=== PATIENT | male | born 1995 | race Caucasian/White ===

== ENCOUNTER 2017-02-22 11:55 | Emergency (ER) | payer SELFPAY ==
[~2017-02-22] VITALS: Ht 185.4 cm; Wt 108.4 kg
[~2017-02-22 11:55] MED LIST: ABILIFY10 MG; DESYREL100 MG; FOCALIN XR15 M1; SERTRALINE HCL100 MG PO
[2017-02-22] MEDS ORDERED: NEOMYCIN-POLYMY10 M1 LEFT EAR (13:01)
[2017-02-22] MEDS ORDERED: FLONASE16 G1 BOTH NARES (13:01)
[2017-02-22] MEDS ORDERED: ZYRTEC10 M3 PO (13:01)
[2017-02-22] MEDS ORDERED: GUAIFENESIN600 M1 PO (13:01)
[2017-02-22 13:10] VITALS: BP 125/70
== END 2017-02-22 13:11 | disposition home or self-care (01) ==
LOC: EME 11:55
DX: H60.92 Unspecified otitis externa, left ear (principal); J30.2 Other seasonal allergic rhinitis; R05 Cough; F17.210 Nicotine dependence, cigarettes, uncomplicated; Z71.6 Tobacco abuse counseling
CPT/HCPCS: 99281; 99282

== ENCOUNTER 2017-09-01 13:35 | Emergency (ER) | payer SELFPAY ==
[~2017-09-01] VITALS: Ht 185.4 cm; Wt 104.4 kg
[~2017-09-01 13:35] MED LIST changes: +FLONASE16 G1 BOTH NARES; +GUAIFENESIN600 M1 PO; +NEOMYCIN-POLYMY10 M1 LEFT EAR; +ZYRTEC10 M3 PO
[2017-09-01 15:27] VITALS: BP 138/90
== END 2017-09-01 15:37 | disposition home or self-care (01) ==
LOC: EME 13:35
DX: J36 Peritonsillar abscess (principal); J02.0 Streptococcal pharyngitis; F17.200 Nicotine dependence, unspecified, uncomplicated
CPT/HCPCS: 87651 90; 99281; 99284